=== PATIENT | male | born 1950 | race Caucasian/White ===

== ENCOUNTER 2017-11-03 00:06 | Emergency (ER) | payer SELFPAY ==
[2017-11-03 00:17] VITALS: BP 167/77; PULSE 67; RESP 20; TEMP 97.7; O2SAT 98
== END 2017-11-03 00:19 | disposition left against medical advice (07) ==
LOC: C.ER 00:06
DX: Z02.89 Encounter for other administrative examinations (principal); R07.0 Pain in throat